=== PATIENT | female | born 1995 | race African-American/Black ===

== ENCOUNTER 2019-07-06 07:55 | Inpatient (IN) ==
[2019-07-06] MEDS ORDERED: OXYTOCIN 30 UNITS/500 ML BAG IV PRN ×2 (10:26→10:27)
--- NOTE | 2019-07-06 10:33 | History & Physical Report ---
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 Allergies Allergy/AdvReac Type Severity Reaction Status Date / Time No Known Allergies Allergy Unverified 01/15/19 10:11 Home Medications Home Medications Medication Instructions Recorded Confirmed Type PNV cmb#95-ferrous fumarate-FA 1 tab PO QAM 11/06/18 07/06/19 History [] cholecalciferol (vitamin D3) 25 mcg PO DAILY 07/06/19 07/06/19 History [Vitamin D3] ferrous sulfate [Iron (ferrous 325 mg PO DAILY 07/06/19 07/06/19 History sulfate)] valacyclovir [Valtrex] 500 mg PO BID 07/06/19 07/06/19 History Patient History Social History Preferred Language: [place] Communication Ability: Effective Chief Ii Dispatcher Required: No Beliefs That Will Affect Care: None marital status: Current Living Situation: Family Current Living Situation Comment: Lives with , a cat, and a dog Feels Safe at Home: Yes Safety Concerns: Feels Safe At This Time Smoking Status: Never smoker Do You Dip or Chew Tobacco: No ; Second Hand Exposure: No ; Tobacco Cessation Education Requested by Patient: No Hx Alcohol Use: No Hx Substance Use: No Review of Systems All systems reviewed & are unremarkable except as noted in HPI & below Physical Exam Constitutional: WD/WN, vitals as above well developed and well nourished Gastrointestinal (Abdomen): Abd: soft, NT, Gravid, sage 7 lb Genitourinary: normal external appearance Speculum/Bimanual Exam: normal appearance of the vagina and normal appearance of the cervix VE; cervix 4 cm/ 60%/ -3, vertex Results & Data Vital Signs (Past 12 Hours) Vital Signs Temp Pulse Resp BP 07/06/19 08:35 66 113/68 07/06/19 08:32 37.2 C 66 16 113/68 Monitoring External Monitor FHR reactive
[2019-07-06] MEDS: LACTATED RINGER'S 1,000 ML IV PRN ×3 (10:48→19:06)
[2019-07-06 10:49] LABS: Hematocrit (blood only) 35.7 % (37-47); Hemoglobin 11.5 g/dL (12.0-16.0); Mean Corpuscular Hemoglobin 27.1 pg (25-34); Mean Corpuscular Volume 84.2 fL (80-100); Platelet Count 220 K/uL (130-400); RDW Coefficient of Variation 14.9 % (11.5-14.5); Red Blood Count 4.24 M/uL (4.2-5.4); White Blood Count 9.82 K/uL (4.8-10.8)
[2019-07-06 11:02] LABS: Mean Corpuscular Hgb Conc 32.2 g/dL (32-36)
[2019-07-06] MEDS ORDERED: BUTORPHANOL TARTRATE 1 MG/ML VIAL IV PRN (11:21)
--- NOTE | 2019-07-06 11:26 | Anesthesiology Consultation ---
Date of Service July 06, 2019 Assessment & Plan Chart Review Chart Review: Acceptable Risk for Labor Epidural Consults Requested none History Height/Weight Height: 5 ft 5 in Weight: 83.461 kg Allergies Allergy/AdvReac Type Severity Reaction Status Date / Time No Known Allergies Allergy Unverified 01/15/19 10:11 Medications Home Medications Medication Instructions Recorded Confirmed Last Taken PNV cmb#95-ferrous fumarate-FA 1 tab PO QAM 11/06/18 07/06/19 07/05/19 10:30 [] cholecalciferol (vitamin D3) 25 mcg PO DAILY 07/06/19 07/06/19 07/05/19 10:30 [Vitamin D3] ferrous sulfate [Iron (ferrous 325 mg PO DAILY 07/06/19 07/06/19 07/05/19 10:30 sulfate)] valacyclovir [Valtrex] 500 mg PO BID 07/06/19 07/06/19 07/05/19 22:00 Active Medications Generic Name Dose Route Start Last Admin Trade Name Freq PRN Reason Stop Dose Admin Lactated Ringer's 1,000 mls @ 150 mls/hr 07/06/19 10:26 07/06/19 10:48 Lr IV 07/08/19 10:25 150 mls/hr .[id number] PRN Administration L&D Protocol Protocol Oxytocin 30 units in 500 mls @ 2 mls/hr 07/06/19 10:27 07/06/19 10:59 Pitocin IV 07/08/19 10:26 0.12 units/hr .Q24H PRN 2 mls/hr Labor Induction/Augmentation Administration Protocol 0.12 UNITS/HR Past Medical History Medical History Blood clotting disorder (Chronic) 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 Endometriosis (Acute) since 2015 Fibromyalgia since 2013 Herpes simplex virus (HSV) infection since 2014; will have Valtrex prophylaxis at 36 weeks Pericarditis 2014 Past Family History Family History Mother Prothrombin [id number] mutation Aunt Prothrombin [id number] mutation Past Surgical History Surgical History [place] teeth removed 2014 Social History Smoking Status: Never smoker Do You Dip or Chew Tobacco: No Hx Alcohol Use: No Hx Substance Use: No substance use type: does not use Physical Exam Vital Signs Last Vital Signs Temp 37.2 C 07/06/19 08:32 Pulse 64 07/06/19 11:05 Resp 16 07/06/19 11:00 BP 122/77 07/06/19 11:05 Testing Laboratory Results 07/06/19 10:30
[2019-07-06] MEDS ORDERED: NALOXONE HCL 0.4 MG/1 ML VIAL/CARP IV PRN (12:01)
[2019-07-06] MEDS ORDERED: fentaNYL 2MCG/ML ROPIV 1.25MG/ML 100 ML BAG EPI PRN (12:01)
[2019-07-06] MEDS ORDERED: NALOXONE HCL 1 MG in SODIUM CHLORIDE 0.9% 1000ML 1,000 ML IV PRN (12:01)
[2019-07-06] MEDS ORDERED: NALBUPHINE HCL INJ 10 MG/ML AMP IV PRN (12:01)
[2019-07-06] MEDS ORDERED: ePHEDrine sulfate 50 MG/ML AMP IV PRN (12:01)
[2019-07-06] MEDS ORDERED: DiphenhydrAMINE HCL 50 MG/ML VIAL IV PRN (12:01)
--- NOTE | 2019-07-06 14:54 | Obstetrical Progress Note ---
Date of Service July 06, 2019 Subjective Patient is reevaluated Feels irregular mild ctxs, not painful yet No LOF/VB +FM VE; 4/ 60%/ -3, bulging bag, AROM'ed, abundant clear fluid FHR categ I [place] ctxs q 2-4 min, pitocin at 14 miu/min Continue to monitor closely Results & Data Vital Signs (Past 12 Hours) Vital Signs Temp Pulse Resp BP 07/06/19 14:29 61 20 129/74 07/06/19 13:30 55 L 16 120/70 07/06/19 12:28 63 20 119/74 07/06/19 12:26 36.9 C 20 07/06/19 11:37 62 124/71 07/06/19 11:35 62 123/68 07/06/19 11:05 64 122/77 07/06/19 11:00 16 07/06/19 08:35 66 113/68 07/06/19 08:32 37.2 C 66 16 113/68
[2019-07-06] MEDS ORDERED: BUPIVACAINE 0.25% 30 ML VIAL ONE ×2 (15:24→15:26)
[2019-07-06] MEDS ORDERED: fentaNYL citrate 100 MCG/2 ML VIAL ONE (15:24)
[2019-07-06] MEDS ORDERED: ePHEDrine sulfate 50 MG/ML AMP ONE (15:24)
[2019-07-06] MEDS ORDERED: fentaNYL 2MCG/ML ROPIV 1.25MG/ML 100 ML BAG EPI ONE (15:25)
--- NOTE | 2019-07-06 18:16 | Obstetrical Progress Note ---
Date of Service July 06, 2019 Subjective Patient is reevaluated Received epidural now comfortable +FM VE; 5/ 70%/ 0, bulging bag, AROM'ed, abundant clear fluid FHR categ I, had decel while having N&V, then recovered [place] ctxs q 2-4 min, pitocin at 16 miu/min Continue to monitor closely Results & Data Vital Signs (Past 12 Hours) Vital Signs Temp Pulse Resp BP Pulse Ox 07/06/19 18:12 62 100 07/06/19 18:07 60 100 07/06/19 18:02 65 99 07/06/19 17:57 59 L 100 07/06/19 17:52 80 96 07/06/19 17:50 73 114/91 07/06/19 17:47 81 99 07/06/19 17:42 65 100 07/06/19 17:37 81 100 07/06/19 17:35 69 124/66 07/06/19 17:32 63 100 07/06/19 17:27 74 100 07/06/19 17:25 78 94 07/06/19 17:22 72 100 07/06/19 17:19 83 125/71 07/06/19 17:17 74 100 07/06/19 17:12 64 100 07/06/19 17:07 67 100 07/06/19 17:05 58 L 131/69 07/06/19 17:02 63 100 07/06/19 16:57 68 100 07/06/19 16:52 63 100 07/06/19 16:50 70 129/64 07/06/19 16:47 60 100 07/06/19 16:42 75 99 07/06/19 16:37 68 100 07/06/19 16:32 69 123/58 L 100 07/06/19 16:28 68 122/56 L 07/06/19 16:27 68 100 07/06/19 16:22 62 137/60 100 07/06/19 16:17 65 99 07/06/19 16:15 55 L 121/58 L 07/06/19 16:13 56 L 125/59 L 07/06/19 16:12 62 100 07/06/19 16:11 59 L 122/57 L 07/06/19 16:09 63 119/57 L 07/06/19 16:07 58 L 116/57 L 100 07/06/19 16:05 58 L 124/56 L 07/06/19 16:04 57 L 125/65 07/06/19 16:02 60 100 07/06/19 16:01 60 145/61 H 07/06/19 15:59 71 132/76 07/06/19 15:57 63 131/75 100 07/06/19 15:48 63 132/77 07/06/19 15:47 78 100 07/06/19 15:43 36.9 C 20 07/06/19 15:29 62 135/71 07/06/19 14:29 61 20 129/74 07/06/19 13:30 55 L 16 120/70 07/06/19 12:28 63 20 119/74 07/06/19 12:26 36.9 C 20 07/06/19 11:37 62 124/71 07/06/19 11:35 62 123/68 07/06/19 11:05 64 122/77 07/06/19 11:00 16 07/06/19 08:35 66 113/68 07/06/19 08:32 37.2 C 66 16 113/68
[2019-07-06] MEDS ORDERED: ONDANSETRON INJ 2 MG/ML 2 ML VIAL IV PRN (19:05)
--- NOTE | 2019-07-06 21:38 | Obstetrical Progress Note ---
Date of Service July 06, 2019 Subjective Patient is reevaluated Feels well, just woke up from a nap Straight cath'ed 200 ml clear urine VE; 8-9 cm/ 80%/ 0 to +1, coned head FHR category I [place]: ctxs q1-3 min Continue to monitor Anticipate Results & Data Vital Signs (Past 12 Hours) Vital Signs Temp Pulse Resp BP Pulse Ox 07/06/19 21:34 77 90 07/06/19 21:32 83 100 07/06/19 21:27 62 100 07/06/19 21:22 66 97 07/06/19 21:17 61 99 07/06/19 21:12 69 97 07/06/19 21:07 60 100 07/06/19 21:02 62 99 07/06/19 20:57 63 100 07/06/19 20:52 74 100 07/06/19 20:47 76 100 07/06/19 20:46 84 94 07/06/19 20:42 75 100 07/06/19 20:37 60 99 07/06/19 20:34 54 L 112/62 07/06/19 20:32 58 L 100 07/06/19 20:30 18 07/06/19 20:27 62 98 07/06/19 20:22 64 99 07/06/19 20:19 53 L 108/61 07/06/19 20:17 54 L 99 07/06/19 20:12 65 99 07/06/19 20:07 58 L 100 07/06/19 20:04 57 L 134/75 07/06/19 20:02 57 L 99 07/06/19 20:00 18 07/06/19 19:57 55 L 100 07/06/19 19:52 60 100 07/06/19 19:49 60 130/72 07/06/19 19:47 55 L 99 07/06/19 19:42 60 98 07/06/19 19:37 57 L 99 07/06/19 19:35 66 132/71 07/06/19 19:32 57 L 98 07/06/19 19:30 18 07/06/19 19:27 57 L 100 07/06/19 19:22 56 L 100 07/06/19 19:20 56 L 144/62 H 07/06/19 19:19 37.3 C 18 07/06/19 19:17 62 100 07/06/19 19:12 57 L 99 07/06/19 19:07 74 100 07/06/19 19:05 74 118/60 07/06/19 19:02 77 100 07/06/19 18:57 105 H 100 07/06/19 18:54 81 92 07/06/19 18:52 62 98 07/06/19 18:50 57 L 135/78 07/06/19 18:47 59 L 100 07/06/19 18:42 36.9 C 61 16 100 07/06/19 18:37 58 L 100 07/06/19 18:34 56 L 140/82 07/06/19 18:32 73 99 07/06/19 18:27 58 L 100 07/06/19 18:22 58 L 100 07/06/19 18:21 58 L 136/77 07/06/19 18:17 60 100 07/06/19 18:12 62 100 07/06/19 18:07 60 100 07/06/19 18:02 65 99 07/06/19 17:57 59 L 100 07/06/19 17:52 80 96 07/06/19 17:50 73 114/91 07/06/19 17:47 81 99 07/06/19 17:42 65 100 07/06/19 17:37 81 100 07/06/19 17:35 69 124/66 07/06/19 17:32 63 100 07/06/19 17:27 74 100 07/06/19 17:25 78 94 07/06/19 17:22 72 100 07/06/19 17:19 83 125/71 07/06/19 17:17 74 100 07/06/19 17:12 64 100 07/06/19 17:07 67 100 07/06/19 17:05 58 L 131/69 07/06/19 17:02 63 100 07/06/19 16:57 68 100 07/06/19 16:52 63 100 07/06/19 16:50 70 129/64 07/06/19 16:47 60 100 07/06/19 16:42 75 99 07/06/19 16:37 68 100 07/06/19 16:32 69 123/58 L 100 07/06/19 16:28 68 122/56 L 07/06/19 16:27 68 100 07/06/19 16:22 62 137/60 100 07/06/19 16:17 65 99 07/06/19 16:15 55 L 121/58 L 07/06/19 16:13 56 L 125/59 L 07/06/19 16:12 62 100 07/06/19 16:11 59 L 122/57 L 07/06/19 16:09 63 119/57 L 07/06/19 16:07 58 L 116/57 L 100 07/06/19 16:05 58 L 124/56 L 07/06/19 16:04 57 L 125/65 07/06/19 16:02 60 100 07/06/19 16:01 60 145/61 H 07/06/19 15:59 71 132/76 07/06/19 15:57 63 131/75 100 07/06/19 15:48 63 132/77 07/06/19 15:47 78 100 07/06/19 15:43 36.9 C 07/06/19 15:29 62 135/71 07/06/19 14:29 61 20 129/74 07/06/19 13:30 55 L 16 120/70 07/06/19 12:28 63 20 119/74 07/06/19 12:26 36.9 C 20 07/06/19 11:37 62 124/71 07/06/19 11:35 62 123/68 07/06/19 11:05 64 122/77 07/06/19 11:00 16
[2019-07-07] MEDS ORDERED: BENZOCAINE 20% AER SPR 82.5 GM CAN EXT PRN (00:25)
[2019-07-07] MEDS ORDERED: bisacodyL 10 MG SUPP PR PRN (00:25)
[2019-07-07] MEDS ORDERED: HYDROCORTISONE ACETATE 25 MG SUPP PR PRN (00:25)
[2019-07-07] MEDS ORDERED: OXYTOCIN 30 UNITS/500 ML BAG IV PRN (00:25)
[2019-07-07] MEDS ORDERED: DIPHTHERIA/TETANUS/PERTUSSIS 0.5 ML SYR/VIAL IM ONE (00:25)
[2019-07-07] MEDS ORDERED: SUPERCREAM 0.870% 15 GM JAR EXT PRN (00:25)
[2019-07-07] MEDS ORDERED: LACTATED RINGER'S 1,000 ML IV SCH (00:30)
--- NOTE | 2019-07-07 01:19 | Anesthesia Procedure Note ---
Date of Service July 07, 2019 Anesthesia Post Epidural Note Vital Signs Vital Signs: Temp Pulse Resp BP Pulse Ox 36.8 C 76 18 133/73 97 07/06/19 21:08 07/07/19 01:13 07/07/19 00:43 07/07/19 01:13 07/07/19 00:57 Pain Intensity Lower Abdomen: Pain Intensity: 0 Notes Mental Status: alert / awake / arousable Nausea / Vomiting: adequately controlled Pain: adequately controlled Airway Patency, RR, SpO2: stable & adequate BP & HR: stable & adequate Hydration State: stable & adequate Neuraxial Anesthesia: was administered and sensory block is resolving Anesthetic Complications: no major complications apparent and Pt Satisfied with anesthetic care Epidural: Removed without complications and With tip intact
[2019-07-07] MEDS: IBUPROFEN 600 MG TAB PO PRN ×5 (02:54→23:06)
--- NOTE | 2019-07-07 08:00 | Delivery Summary ---
DATE OF OPERATION: 07/06/2019 TIME: 23:50 p.m. DETAILS OF DELIVERY: The patient was found to be fully dilated and desired to push. She pushed for about 15 minutes and delivered the head without difficulty. Shoulders were delivered with minimal traction. There were nuchal cord around the neck x2 and they were tight. Those were reduced and then baby was handed off to the mother. Mouth and nose were suctioned. Cord was clamped x2 and cut at 1 minute delay and cord blood was obtained. Vigorous crying and moving vigorously and then vagina and perineum were checked for lacerations. There was a first degree laceration in the posterior one-third of vagina wall and then a right labia. Those were repaired with 3-0 Vicryl on Vicryl in SH needle. Excellent hemostasis was achieved. Placenta was found to be in the vagina, delivered spontaneous as intact and complete. Uterus was explored, found to be empty. Lower segment was cleared of all clots and debris. Fundus was firm. EBL was 200 mL. Mom and baby tolerated the procedure well. Sponge, lap, needle count was correct x2. Baby was a viable male , Apgars 8/9. No complications happened and I was present during whole procedure. I attest to the content of the Intraoperative Record and any orders documented therein. Any exceptions are noted below. MTDD
[2019-07-07] MEDS: FERROUS SULFATE 325 MG TAB PO SCH (08:09)
[2019-07-07] MEDS: DOCUSATE SODIUM 100 MG CAP PO SCH ×2 (08:09→21:20)
[2019-07-07] MEDS: PRENATAL VITAMIN 1 TAB PO SCH (08:09)
--- NOTE | 2019-07-07 10:02 | Obstetrical Progress Note ---
Date of Service July 07, 2019 Physical Exam Constitutional: WD/WN, vitals as above comfortable abdomen soft and non- tender fundus firm no edema neg Lynda's tent d/c in AM Results & Data Vital Signs (Past 12 Hours) Vital Signs Temp Pulse Pulse Resp BP BP Pulse Ox 07/07/19 08:15 36.6 C 64 20 116/76 07/07/19 02:08 55 L 18 135/71 07/07/19 01:43 56 L 18 139/80 07/07/19 01:30 59 L 136/67 07/07/19 01:13 76 18 133/73 07/07/19 00:57 73 18 149/70 H 97 07/07/19 00:52 56 L 99 07/07/19 00:47 72 99 07/07/19 00:43 62 18 131/86 07/07/19 00:42 74 99 07/07/19 00:37 64 98 07/07/19 00:32 64 99 07/07/19 00:27 80 18 137/83 99 07/07/19 00:22 71 99 07/07/19 00:17 69 98 07/07/19 00:12 78 18 142/91 H 98 07/07/19 00:08 86 90 07/07/19 00:07 80 99 07/07/19 00:04 68 144/92 H 07/07/19 00:02 93 H 98 07/06/19 23:57 75 98 07/06/19 23:52 99 H 99 07/06/19 23:51 18 07/06/19 23:49 78 135/82 07/06/19 23:47 73 99 07/06/19 23:42 100 H 100 07/06/19 23:37 98 H 98 07/06/19 23:34 75 127/79 07/06/19 23:32 78 100 07/06/19 23:30 18 07/06/19 23:27 80 98 07/06/19 23:22 74 98 07/06/19 23:17 64 100 07/06/19 23:12 67 99 07/06/19 23:07 77 100 07/06/19 23:04 91 H 131/71 07/06/19 23:02 92 H 100 07/06/19 23:00 18 07/06/19 22:57 98 H 99 07/06/19 22:52 74 98 07/06/19 22:51 58 L 150/73 H 07/06/19 22:47 70 98 07/06/19 22:42 67 100 07/06/19 22:37 81 99 07/06/19 22:35 61 146/68 H 07/06/19 22:32 68 100 07/06/19 22:30 18 07/06/19 22:27 70 100 07/06/19 22:22 62 100 07/06/19 22:21 72 133/78 07/06/19 22:17 74 100 07/06/19 22:12 67 100 07/06/19 22:07 70 100 07/06/19 22:05 57 L 139/75 07/06/19 22:02 60 100 Laboratory Results Laboratory Results - last 72 hr 07/06/19 10:30 WBC 9.82 RBC 4.24 Hgb 11.5 L Hct 35.7 L MCV 84.2 MCH 27.1 MCHC 32.2 RDW Std Deviation 45.0 RDW Coeff of Maxi 14.9 H Plt Count 220 MPV 12.0 H
[2019-07-07] MEDS: ACETAMINOPHEN 325 MG TAB PO PRN (18:45)
[2019-07-08] MEDS: ACETAMINOPHEN 325 MG TAB PO PRN (06:24)
[2019-07-08 06:49] LABS: Hemoglobin 9.7 g/dL (12.0-16.0); Mean Corpuscular Hgb Conc 32.3 g/dL (32-36); Mean Corpuscular Volume 83.6 fL (80-100); Mean Platelet Volume 12.1 fL (7.4-10.4); Platelet Count 191 K/uL (130-400); RDW Coefficient of Variation 14.9 % (11.5-14.5); RDW Standard Deviation 45.2 fL (36.4-46.3); Red Blood Count 3.59 M/uL (4.2-5.4); White Blood Count 8.87 K/uL (4.8-10.8)
[2019-07-08] MEDS: DOCUSATE SODIUM 100 MG CAP PO SCH (08:24)
[2019-07-08] MEDS: FERROUS SULFATE 325 MG TAB PO SCH (08:24)
[2019-07-08] MEDS: PRENATAL VITAMIN 1 TAB PO SCH (08:24)
--- NOTE | 2019-07-08 10:25 | Obstetrical Progress Note ---
Date of Service July 08, 2019 Subjective Patient is seen and examined. She feels well, no complaints. Likes to be discharged Ambulating without dizziness Voiding without difficulty Tolerating regular diet with out N&V Bleeding is minimal No fever/ chills/ CP/ SOB/ N&V/ Leg pain Breast feeding without problems Vital Signs Temp Pulse Resp BP Pulse Ox 07/08/19 08:00 36.6 C 65 18 117/72 98 07/07/19 23:15 36.6 C 60 18 120/78 07/07/19 21:20 36.7 C 66 18 121/74 07/07/19 18:00 36.7 C 69 16 137/85 07/07/19 12:20 36.8 C 59 L 20 120/76 Lab Results 07/06/19 07/08/19 Range/Units 10:30 06:17 WBC 9.82 8.87 (4.8-10.8) K/uL RBC 4.24 3.59 L (4.2-5.4) M/uL Hgb 11.5 L 9.7 L (12.0-16.0) g/dL Hct 35.7 L 30.0 L (37-47) % MCV 84.2 83.6 (80-100) fL MCH 27.1 27.0 (25-34) pg MCHC 32.2 32.3 (32-36) g/dL RDW Std Deviation 45.0 45.2 (36.4-46.3) fL RDW Coeff of Maxi 14.9 H 14.9 H (11.5-14.5) % Plt Count 220 191 (130-400) K/uL MPV 12.0 H 12.1 H (7.4-10.4) fL PE: General: Alert, orientedx3, NAD Abd: soft, NT, fundus firm, below Umbilicus Perineum intact, Lochia rubra minimal Ext; NT, no edema AP: 23 yo s/p , ppd# 2 VSS Afebrile doing well Continue routine care All questions were answered D/C home , f/u in office Discussed when to call Results & Data Vital Signs (Past 12 Hours) Vital Signs Temp Pulse Resp BP Pulse Ox 07/08/19 08:00 36.6 C 65 18 117/72 98 07/07/19 23:15 36.6 C 60 18 120/78
[2019-07-08] MEDS: IBUPROFEN 600 MG TAB PO PRN (12:34)
[2019-07-08] MEDS ORDERED: bisacodyL 5 MG TABEC PO SCH (20:00)
== END 2019-07-08 14:35 | disposition home or self-care (01) | DRG 806 ==
LOC: 4S1 07:55 → 4S2 07-07 02:45